=== PATIENT | female | born 1955 | race Caucasian/White ===

== ENCOUNTER → 2016-11-30 | Outpatient (CLI) | payer MEDICARE ==
[~2016-11-30] MED LIST: ALB/IPRATROPIUM/1 E1 INH; ALLERGY10 M1 PO; ALPRAZOLAM1 M1 PO; ALPRAZOLAM1 MG PO; AMITRIPTYLINE H50 MG PO; AMLODIPINE BESY10 MG PO; AMLODIPINE BESYL5 MG PO; APRESOLINE10 M1 PO; ASPIRIN81 M1 PO; ATARAX PO; ATROVENT 0.03%30 ML NS; CELEXA PO; CIPRO PO; CLONIDINE HCL0.1 MG PO; COATED ASPIRIN325 M1 PO; COLACE PO; COZAAR PO; CYMBALTA PO; CYMBALTA30 MG PO; DALIRESP500 MCG PO; DEXILANT60 MG PO; DITROPAN5 MG PO; FENOFIBRATE48 MG PO; FLEXERIL10 MG PO; FLOVENT7.9 GM INH; GLUCOPHAGE500 MG PO; GLUCOTROL PO; HYDROXYZINE HCL25 M1 PO; IRON1 TA1 PO; JANUVIA100 MG PO; LEVAQUIN250 MG PO; LEVAQUIN750 MG PO; LEVOCETIRIZINE D5 MG PO; LIDOCAINE 5% PATCH TOP; LOPID600 MG PO; LOPRESSOR PO; LORTAB 7.5-5001 TAB PO; LOVAZA1 G PO; LYRICA PO; MELOXICAM15 MG PO; METFORMIN HCL500 M1 PO; METFORMIN PO; METOPROLOL SUCC25 MG PO; MOBIC PO; MOBIC15 MG PO; NEXIUM PO; NIASPAN1000 MG PO; NORCO 10-325 TA1 TAB PO; NORCO 10/3251 TAB PO; OMEGA 3 PO; ONGLYZA5 MG PO; PEPCID AC20 MG PO; PERCOCET5/325 PO; PHENERGAN25 M1 PO; PHENERGAN25 MG PO; PREDNISONE PO; PRINIVIL40 MG PO; PROAIR HFA8.5 GM IH; PROAIR RESPICL90 MCG; PROMETHAZINE D118 ML PO; PYRIDIUM PO; SINGULAIR PO; SPIRIVA18 MCG IH; SPIRIVA18 MCG INH; STOOL SOFTENER100 M1 PO; SYMBICORT INH; TRIAMTERENE-HC1 EAC1 PO; TRIAMTERENE-HC1 EACH PO; TRICOR PO; TUSSIONEX PENN473 ML PO; ULTRAM PO; VIBRAMYCIN100 M1 PO; VITAMIN B 12 SHOT; VITAMIN E1000 UNI1 PO; VYTORIN 10-40 M1 TAB PO; ZETIA PO; ZITHROMAX PO
--- NOTE | ~2016-11-30 | US116 ---
[facility]. [facility] A Service of [facility] RADIOLOGY TEXT RESULTS PATIENT: ASHWIN POLO LOCATION: [facility] : 53 UNIT #: [id number] AGE: [address]: Gelacio Luis MD SEX: F ORDER DR: [id number] [place] [id number] O MR#: [id number] Acc #: [id number] NAME: ASHWIN POLO : 1955 SEX: F STUDY DATE/TIME: 11/30/2016 11:10 UNIT: [facility] ROOM: STUDY DESCRIPTION: US Soft Tissue Head/Neck Attending Physician: Gelacio Luis M.D. Referring Physician: Gelacio Luis M.D. Ordering Physician: Gelacio Luis M.D. Primary Care Physician: Gelacio Luis M.D. MEDICAL IMAGING REPORT This report is preliminary unless electronic signature is present. EXAM Ultrasound of the clavicle soft tissue 11/30/2016 HISTORY This patient reports a palpable area on the clavicle for 6 weeks. TECHNIQUE Sagastume-scale and color Doppler sonographic images were obtained through the area of concern. FINDINGS Within this area there is a hypoechoic structure measuring up to 1.7 x 1.6 x 0.6 cm. It is avascular and appears to have some echogenic foci within the center. The borders are irregular. IMPRESSION Within the area of concern the patient does have a hypoechoic irregularly marginated lesion measuring up to 1.7 x 1.6 x 0.6 cm. Its clinical significance is uncertain. Further evaluation with CT with contrast with marker placed over the area of concern is recommended. Dictated by... Abiola Lieberman M.D. THIS IS AN ELECTRONICALLY VERIFIED REPORT Abiola Lieberman M.D. at 12/04/2016 8:02 AM STEPHANIE/amanda TD: 11/30/2016 17:45 JOB #: [id number] MEDICAL IMAGING REPORT Page 1 of 1
== END | disposition home or self-care (01) ==
LOC: SGUS 10:23
DX: L98.9 Disorder of the skin and subcutaneous tissue, unspecified (principal)
CPT/HCPCS: 76536

== ENCOUNTER → 2017-01-23 | Outpatient (CLI) | payer OTHER ==
--- NOTE | ~2017-01-23 | BD1 ---
[facility] A Service of [facility] RADIOLOGY TEXT RESULTS PATIENT: ASHWIN POLO LOCATION: [facility] : 53 UNIT #: [id number] AGE: [address]: Gelacio Luis MD SEX: F ORDER DR: [id number] [place] [id number] O MR#: [id number] Acc #: [id number] NAME: ASHWIN POLO : 1955 SEX: F STUDY DATE/TIME: 01/23/2017 9:09 UNIT: [facility] ROOM: STUDY DESCRIPTION: Dexa Bone Dens 1+ Site Attending Physician: Gelacio Luis M.D. Referring Physician: Gelacio Luis M.D. Ordering Physician: Gelacio Luis M.D. Primary Care Physician: Gelacio Luis M.D. MEDICAL IMAGING REPORT This report is preliminary unless electronic signature is present. EXAM DXA scan 01/23/2017 HISTORY Status post menopause with no hormone replacement therapy. Osteopenia. Hysterectomy at age 24 with removal of both ovaries. Liver disease. Smoking history for 15 years. Fracture of left knee in last 10 years. FINDINGS Bone mineral density in the left femoral neck was 0.931 g/cm2 which is 0.8 standard deviations below the mean when compared to the young adult reference population which is within the range of normal. This is 0.5 standard deviations above the mean when compared to the age-matched population. Bone mineral density in the left forearm was 0.517 g/cm2 which is 1.1 standard deviations above the mean when compared to the young adult reference population which is within the range of normal. This is 2.2 standard deviations above the mean when compared to the age-matched population. IMPRESSION Bone mineral density in the left hip and left forearm within the range of normal. Dictated by... Wally Main M.D. THIS IS AN ELECTRONICALLY VERIFIED REPORT Wally Main M.D. at 01/24/2017 8:01 AM HAILEY/mjs [facility] A Service of [facility] RADIOLOGY TEXT RESULTS PATIENT: ASHWIN POLO LOCATION: [facility] : 53 UNIT #: [id number] AGE: [address]: Gelacio Luis MD SEX: F ORDER DR: TD: 01/23/2017 11:13 JOB #: [id number] MEDICAL IMAGING REPORT Page 1 of 1
== END | disposition home or self-care (01) ==
LOC: SRAD 08:51
DX: Z13.820 Encounter for screening for osteoporosis (principal); Z78.0 Asymptomatic menopausal state
CPT/HCPCS: 77080

== ENCOUNTER → 2017-01-30 | Outpatient (CLI) | payer MEDICARE, OTHER ==
--- NOTE | ~2017-01-30 | CT129 ---
[facility]. [facility] A Service of [facility] RADIOLOGY TEXT RESULTS PATIENT: ASHWIN POLO LOCATION: [facility] : 53 UNIT #: [id number] AGE: [address]: Wally Pratt MD SEX: F ORDER DR: [id number] [place] [id number] O MR#: [id number] Acc #: [id number] NAME: ASHWIN POLO : 1955 SEX: F STUDY DATE/TIME: 01/30/2017 12:57 UNIT: [facility] ROOM: STUDY DESCRIPTION: CT Upper Ext Rt WWo Cont Attending Physician: Wally Pratt M.D. Referring Physician: Wally Pratt M.D. Ordering Physician: Wally Pratt M.D. Primary Care Physician: Gelacio Luis M.D. MEDICAL IMAGING REPORT This report is preliminary unless electronic signature is present. EXAM CT right clavicle without and with contrast, 01/30/2017. HISTORY 61-year-old female with enlarging palpable area in the region of the proximal right clavicle for 3 months. No associated pain. No prior right clavicle surgery. No known injury. COMPARISON Soft tissue ultrasound 11/30/2016. Right clavicle x-rays 01/23/2017. TECHNIQUE Helical scan performed through the right clavicle, both pre and post administration of IV contrast. Coronal and sagittal reformatted images. This CT exam was performed with one or more of the following radiation dose reduction techniques: automatic exposure control, adjustment of mA and/or kV according to patient size, and iterative reconstruction. FINDINGS An external marker was placed over the area of concern. This corresponds to an area along the proximal third of the right clavicular shaft. Deep to the marker, there is no specific soft tissue abnormality noted. No bony lesion or abnormal enhancement. However, near the marker, there is somewhat prominent asymmetric Arthropathic change involving the right sternoclavicular joint. There is a small amount of fluid in the joint. These findings could account for the recent sonographic findings. There is no evidence of significant supraclavicular or cervical lymphadenopathy by size criteria. Visualized vascular structures are unremarkable. Visualized right lung apex is unremarkable. IMPRESSION 1. No specific CT abnormality noted directly deep to the marked area of concern along the proximal third of the right clavicle. However, [facility] A Service of [facility] RADIOLOGY TEXT RESULTS PATIENT: ASHWIN POLO LOCATION: [facility] : 53 UNIT #: [id number] AGE: [address]: Wally Pratt MD SEX: F ORDER DR: near the marked area of concern, there is slightly prominent, asymmetric Arthropathic change involving the right sternoclavicular joint with a small amount of fluid in the joint. This possibly may correspond to the recent sonographic findings. If this palpable area of concern continues to be of clinical significance, then further characterization with MRI of the right clavicle may be considered. 2. No CT evidence of cervical, supraclavicular, or axillary lymphadenopathy by size criteria. Dictated by... Gabriel Mckeon M.D. THIS IS AN ELECTRONICALLY VERIFIED REPORT Gabriel Mckeon M.D. at 02/01/2017 5:11 PM DEANNA/vira TD: 01/31/2017 22:44 JOB #: [id number] MEDICAL IMAGING REPORT Page 1 of 1
[2017-01-30 12:50] LABS: POC - GFR >60.0 mL/min (>60)
== END | disposition home or self-care (01) ==
LOC: SCT 12:26
PROVIDERS: Orthopaedic Surgery
DX: R22.31 Localized swelling, mass and lump, right upper limb (principal)
CPT/HCPCS: 73202; 76376; 82565; Q9967